=== PATIENT | male | born 1960 | race Caucasian/White ===

== ENCOUNTER 2025-11-03 14:13 | Outpatient (AMB) | payer OTHER, MEDICARE, MEDICAID, SELFPAY ==
[2025-11-03 14:23] VITALS: BMI 32.1
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
--- OUTSIDE RECORDS SUMMARY | 2025-11-03 18:28 | XMS_ITS | Clinical Summary ---
Author Organization [facility] Prior to 04/16/25 Address [address] [place] [address] Care Team Providers Care Family Intervention Specialist Name Role Phone Ruslan Sethi PA-C Primary Care Provider Allergies No known active allergies Medications Medication Sig Dispensed Refills Start Date End Date Status metFORMIN (GLUCOPHAGE) tablet 500 mg Take 2 tablets (1,000 mg total) by mouth 2 (two) times a day with meals. 0 Active omeprazole (PriLOSEC) 20 MG capsule Take 1 capsule (20 mg total) by mouth daily. 0 Active losartan (COZAAR) tablet 50 mg Take 1 tablet (50 mg total) by mouth daily. 0 Active atorvastatin (LIPITOR) tablet 40 mg Take 1 tablet (40 mg total) by mouth daily. 0 Active ferrous sulfate 324 (65 Fe) MG EC tablet TAKE 1 TAB BY MOUTH DAILY WITH BREAKFAST 90 tablet 1 07/28/2023 Active Active Problems Problem Noted Date Diagnosed Date Type 2 diabetes mellitus wit hout complication, without long-term current use of insulin 01/28/2023 Other hyperlipidemia 01/28/2023 Gastroesophageal reflux disease without esophagi tis 01/28/2023 ASHLYN (obstructive sleep apnea) 01/28/2023 Chronic bilateral low back pain without sciatica 01/28/2023 Leukocytosis 01/28/2023 Social History Tobacco Use Types Packs/Day Years Used Date Smoking Tobacco: Never Smokeless Tobacco: Never Alcohol Use Standard Drinks/Week Comments Never 0 (1 standard drink = 0.6 oz pur e alcohol) Sex and Gender Information Value Date Recorded Sex Assigned at Not on file Gender Identity Not on file Sexual Orientation Not on file Job Start Date Occupation Industry Not on file Not on file Not on file Last Filed Vital Signs Vital Sign Reading Time Taken Comments Blood Pressure 144/80 04/16/2023 9:25 AM EDT Pulse 83 04/16/2023 9:25 AM EDT Temperature 36.5 C (97.7 F) 04/16/2023 9:25 AM EDT Respiratory Rate - - Oxygen Saturation 95% 04/16/2023 9:25 AM EDT Inhaled Oxygen Concentration - - Weight 114.8 kg (253 lb) 04/16/2023 9:25 AM EDT Height 180.3 cm (5' 11 ) 04/16/2023 9:25 AM EDT Body Mass Index 35.29 04/16/2023 9:25 AM EDT Plan of Treatment Health Maintenance Due Date Last Done Comments Hepatitis C Screening 1960 COVID-19 Vaccine (#1) 03/20/1960 Depression Screening 1971 Preventative Health Evaluation 1977 Colon Cancer Screening (Colonoscopy) 2004 Shingrix-Zoster Vaccine (1 o f 2) 2009 Pneumococcal Vaccine (2 of 2 - PCV) 10/16/2021 10/16/2020 Fall Risk Assessment 2024 Influenza Vaccine (#1) 2025 DTap / Tdap / Td (3 - Td or Tdap) 10/16/2030 10/16/2020, 08/22/2008 RSV Adult > 60+ Yrs or (1 - 1-dose 75+ series) 2034 Hepatitis B Vaccines Aged Out No long er eligible based on patient's age to complete this topic RSV Ped < 20 months Aged Out No longe r eligible based on patient's age to complete this topic Care Teams Family Intervention Specialist Relationship Specialty Start Date End Date Ruslan Sethi, PASophiaC PCP - General Medical Services 01/21/23
--- OUTSIDE RECORDS SUMMARY | 2025-11-03 18:28 | XMS_ITS | Clinical Summary ---
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 06/30/2025 10:20 AM EDT 06/30/2025 10:20 AM EDT us Eduarda ORDOÑEZ LAB BLOOD ORDERABLES Final Resul t Performing Organization Address [facility] [[email or web address]] de Phone Number [facility] [address] [place] [address], [place] [phone] * (ABNORMAL) Comprehensive metabolic panel (06/30/2025 10:20 AM EDT) Sodium 137 133 - 145 mmol/L LAB CHEMISTRY METHOD 06/30/2025 1:41 PM EDT [facility] Potassium 4.5 3.5 - 5.5 mmol/L LAB CHEMISTRY METHOD 06/30/2025 1:41 PM EDT [facility] Chloride 105 96 - 110 mmol/L LAB CHEMISTRY METHOD 06/30/2025 1:41 PM EDT [facility] CO2 28 21 - 32 mmol/L LAB CHEMISTRY METHOD 06/30/2025 1:41 PM [facility] Anion Gap 4 3 - 11 LAB CHEMISTRY METHOD 06/30/2025 1:41 PM [facility] Glucose 196(H) 70 - 100 mg/dL LAB CHEMISTRY METHOD 06/30/2025 1:41 PM [facility] BUN 17 5 - 25 mg/dL LAB CHEMISTRY METHOD 06/30/2025 1:41 PM [facility] Creatinine 1.08 0.70 - 1.30 mg/dL LAB CHEMISTRY METHOD 06/30/2025 1:41 PM [facility] eGFR 76 >=60 mL/min/1. 73m2 LAB CHEMISTRY METHOD 06/30/2025 1:41 PM [facility] Comment:Calculation based on the Chronic Kidney Disease Epidemiology Collaboration (CKD-EPI) equation refit without adjustment for race. BUN/Creatinine Ratio 15.7 LAB CHEMISTRY METHOD 06/30/2025 1:41 PM [facility] Calcium 9.1 8.5 - 10.5 mg/dL LAB CHEMISTRY METHOD 06/30/2025 1:41 PM [facility] AST (SGOT) 14 10 - 42 unit/L LAB CHEMISTRY METHOD 06/30/2025 1:41 PM [facility] ALT (SGPT) 32 10 - 60 unit/L LAB CHEMISTRY METHOD 06/30/2025 1:41 PM [facility] Alkaline Phosphatase 121 42 - 121 unit/L LAB CHEMISTRY METHOD 06/30/2025 1:41 PM [facility] Total Protein 7.0 6.0 - 8.0 g/dL LAB CHEMISTRY METHOD 06/30/2025 1:41 PM [facility] Albumin 3.8 3.2 - 5.0 g/dL LAB CHEMISTRY METHOD 06/30/2025 1:41 PM [facility] Total Bilirubin 0.3 0.0 - 1.4 mg/dL LAB CHEMISTRY METHOD 06/30/2025 1:41 PM EDT [facility] Blood Venous blood specimen / Unknown Venipuncture / Unknown 06/30/2025 10:20 AM EDT 06/30/2025 10:20 AM EDT Deuarda Satya ORDOÑEZ LAB BLOOD ORDERABLES Final Resul t [facility] [address] [place] [address], * Diabetes Foot Exam (09/02/2024) [facility] Diabetes: Annual Foot Exam Abstracted Result [facility] Historical Provider HEALTH MAINTENANCE Final Result * Stool Based Tests (FOBT/FIT) (05/10/2024) [facility] Colorectal Cancer Screening: Stool Based Tests Negative, Abstracted Historical Provider HEALTH MAINTENANCE Final Result * Depression Screening (05/03/2024) [facility] Depression Screening Abstracted Historical Provider HEALTH MAINTENANCE Final Result * Diabetes Eye Exam (03/01/2024) [facility] Diabetes: Annual Retina Eye Exam Abstracted Result [facility] Historical Provider HEALTH MAINTENANCE Final Result * Hepatitis C Screening (04/20/2020) [facility] Hepatitis C Screening Abstracted Result [facility] Historical Provider HEALTH MAINTENANCE Final Result from Last 3 Months or Most Recently Relevant to Health Maintenance Insurance [employer] MEDIC[place] [employer] MEDICARE [place] 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
--- OUTSIDE RECORDS SUMMARY | 2025-11-03 18:28 | XMS_ITS | Clinical Summary ---
Author Organization [facility] Address [address] [place] [phone] Phone Care Team Providers Care Clerk Checker Name Role Phone Ruslan Sehti Primary Care Provid er Social History Tobacco Use Types Packs/Day Years Used Date Smoking Tobacco: Never Assessed Education Answer Date Recorded Are you interested in more education? Not on travis e 03/14/2023 Are you concerned about learning? Not on file 03/14/2023 No 03/14/2023 No 03/14/2023 Digital Access Answer Date Recorded No 04/12/2023 No 04/12/2023 No 04/12/2023 Reliable internet access at home? Not on file 04/12/2023 Device with a working camera? Not on file Sex and Gender Information Value Date Recorded Sex Assigned at Not on file Legal Sex Male 1:33 PM EST Gender Identity Not on file Sexual Orientation Not on file Plan of Treatment Health Maintenance Due Date Last Done Comments LIPID PANEL 1959 DEPRESSION SCREENING 1971 SMOKING Hx and SMOKELESS TOBACCO SCREENING 1972 HEPATITIS C SCREENING 1977 COLOGUARD 2004 COLONOSCOPY 2004 COLORECTAL CANCER SCREENING 2004 FIT TEST 2004 FOBT 2004 SIGMOIDOSCOPY 2004 VIRTUAL COLONOSCOPY 2004 ZOSTER VACCINES (1 of 2) 2009 PNEUMOCOCCAL VACCINES (50+ years) (2 of 2 - PCV) 10/16/2021 10/16/2020 INFLUENZA VACCINE (#1) 2025 COVID-19 VACCINE (1 - 2024-2 6 season) 2025 Adult Td,Tdap Booster 10/16/2030 10/16/2020 , 08/22/2008 RSV VACCINE (1 - 1-dose 75+ series) 2034 HEPATITIS A VACCINES Aged Out No long er eligible based on patient's age to complete this topic HIB VACCINES Aged Out No longer eligi ble based on patient's age to complete this topic MENINGOCOCCAL VACCINES (ACWY) Aged Out No longer eligible based on patient's age to complete this topic MENINGOCOCCAL VACCINES (B) Aged Out N o longer eligible based on patient's age to complete this topic Medical Devices Not on file Insurance [employer] PPO MEDICARE REPLACEMENT PARTIAL AETNA PPO MEDICARE REPLACEMENT [employer] SAFETY NET PARTIAL [facility] RE[facility] [employer] SAFETY NET PARTIAL [facility]ENA [facility] MEDICARE REPLACEMENT SAFETY NET PARTIAL AETNA O MEDICARE REPLACEMENT PARTIAL AETNA [facility] MEDICARE REPLACEMENT Member Subscriber Plan / Payer (Ef fective 2019-Present) Name:Alex Hollingsworth Member ID:[id number] Relation to Subscriber:Self Name:Alex Hollingsworth Subscriber ID:[id number] Payer ID:[id number] (NA) Type:Medicare Address: [address] SAFETY NET PARTIAL [employer] PPO MEDICARE REPLACEMENT Member Subscriber Plan / Payer (Ef fective 2019-Present) Name:Hollingsworth Alex Member ID:[id number] Relation to Subscriber:Self Name:Alex Hollingsworth Subscriber ID:[id number] Payer ID:[id number] ([facility]) Type:Medicare Address: [address] PARTIAL Member Subscriber Plan / Payer (Ef fective 2020-Present) Name:HollingsworthAlex Relation to Subscriber:Self Name:Alex Hollingsworth Payer ID:Not on file Group ID:Not on file Type:Medicaid Address: [place] [id number] [employer] PPO MEDICARE REPLACEMENT Member Subscriber Plan / Payer (Ef fective 2019-Present) Name:Alex Hollingsworth Member ID:[id number] Relation to Subscriber:Self Name:Alex Hollingsworth Subscriber ID:[id number] Payer ID:[id number] (NAIC) Type:Medicare Address: [address] SAFETY NET PARTIAL [employer] O MEDICARE REPLACEMENT Member Subscriber Plan / Payer (Ef fective 2019-Present) Name:Alex Hollingsworth Member ID:[id number] Relation to Subscriber:Self Name:Alex Hollingsworth Subscriber ID:[id number] Payer ID:[id number] (NAIC) Type:Medicare Address: [address] NET PARTIAL Care Teams Clerk Checker Relationship Specialty Start Date End Date Ruslan Sethi PA [address] [place] [id number] PCP - General Unknown Provider Specialty 11/14/20 Additional Source Comments The information contained in this document represents components of the legal health record. It is not the complete legal health record.[facility]
== END 2025-11-03 17:04 | disposition home or self-care (01) ==
PROVIDERS: PCP Physician Assistant Medical; Visit Provider Physician Assistant
DX: M54.16 Radiculopathy, lumbar region (principal); M47.816 Spondylosis without myelopathy or radiculopathy, lumbar region
CPT/HCPCS: 99203